=== PATIENT | male | born 2000 | race Caucasian/White ===

== ENCOUNTER 2020-12-16 12:06 | Emergency (ER) | payer OTHER ==
[~2020-12-16] VITALS: Ht 175.3 cm; Wt 72.7 kg
[2020-12-16] MEDS ORDERED: ketorolac tromethamine 15mg/ml inj. IV ONE (18:40)
[2020-12-16] MEDS ORDERED: ketorolac trometh. 30mg/ml inj. IV ONE (18:40)
[2020-12-16] MEDS ORDERED: CYCL-1 PO (18:55)
[2020-12-16 20:36] VITALS: BP 110/64
== END 2020-12-16 20:33 | disposition home or self-care (01) ==
LOC: ER 12:06
DX: S13.4XXA Sprain of ligaments of cervical spine, initial encounter (principal); R10.84 Generalized abdominal pain; R51.9 Headache, unspecified; M54.89 Other dorsalgia; M54.2 Cervicalgia; F17.200 Nicotine dependence, unspecified, uncomplicated; Z72.89 Other problems related to lifestyle; Z79.899 Other long term (current) drug therapy; V87.7XXA Person injured in collision between other specified motor vehicles (traffic), initial encounter; Y93.89 Activity, other specified; Y92.89 Other specified places as the place of occurrence of the external cause; Y99.8 Other external cause status
CPT/HCPCS: 70450; 71045; 72125; 96374; 99285; J1885